=== PATIENT | female | born 1935 | race Caucasian/White ===

== ENCOUNTER 2017-08-22 17:42 | Emergency (ER) | payer OTHER, BC ==
[~2017-08-22] VITALS: Ht 157.5 cm; Wt 103.4 kg
[~2017-08-22 17:42] MED LIST: CALTRATE 6001 TABLET PO; CELEBREX200 MG PO; ENDOCET 5-3251 EACH PO; Ecotrin PO; FISH OIL 300 M1 EACH PO; Feosol PO; GLUCOSAMINE H1500 MG PO; LIPITOR20 MG PO; METAMUCIL CAPSU1 CAP PO; PLAVIX75 MG PO; PRINIVIL20 MG PO; SENOKOT S,PE1 TABLET PO; TOPROL XL200 MG PO; VITAMIN B-6100 MG PO; VITAMIN D1000 UNIT PO
[2017-08-22] MEDS ORDERED: CLINDAMYCIN HC300 MG PO (19:28)
[2017-08-22] MEDS ORDERED: MOTRIN600 MG PO (19:28)
[2017-08-22] MEDS ORDERED: NORCO 5/3251 TABLET PO (19:28)
[2017-08-22] MEDS ORDERED: BACTRIM,SEPT1 TABLET PO (19:28)
[2017-08-22 20:05] VITALS: BP 183/111
== END 2017-08-22 20:15 | disposition home or self-care (01) ==
LOC: EME 17:42
DX: S61.431A Puncture wound without foreign body of right hand, initial encounter (principal); L08.9 Local infection of the skin and subcutaneous tissue, unspecified; W54.0XXA Bitten by dog, initial encounter; Z88.0 Allergy status to penicillin; Z88.1 Allergy status to other antibiotic agents
CPT/HCPCS: 73130; 99281; 99284